=== PATIENT | male | born 1935 | race Hispanic/Latino ===

== ENCOUNTER 2016-07-16 09:07 | Outpatient (CLI) | payer MEDICARE | END 2016-07-16 09:08 | LOC: NAVSJIPCSP 09:07 | PROVIDERS: ATTEND Internal Medicine | DX: E78.5 Hyperlipidemia, unspecified (principal); I11.9 Hypertensive heart disease without heart failure; Z78.9 Other specified health status | CPT/HCPCS: 36415; 80061 ==

== ENCOUNTER 2016-10-18 09:04 | Outpatient (CLI) | payer MEDICARE ==
[2016-10-18 13:13] LABS: Cardiac Risk 5.7 (Less than 4.5)
== END 2016-10-18 09:05 | disposition home or self-care (01) ==
LOC: NAVSJIPCSP 09:04
PROVIDERS: ATTEND Internal Medicine
DX: E78.5 Hyperlipidemia, unspecified (principal); Z79.899 Other long term (current) drug therapy
CPT/HCPCS: 36415; 80061

== ENCOUNTER 2016-10-20 21:26 | Emergency (ER) | payer MEDICARE | END 2016-10-20 22:00 | disposition home or self-care (01) | LOC: NAV ERS 21:26 | DX: S50.861A Insect bite (nonvenomous) of right forearm, initial encounter (principal); I10 Essential (primary) hypertension; I25.2 Old myocardial infarction; E78.5 Hyperlipidemia, unspecified; W57.XXXA Bitten or stung by nonvenomous insect and other nonvenomous arthropods, initial encounter | CPT/HCPCS: 99283 ==

== ENCOUNTER 2016-11-13 18:15 | Emergency (ER) | payer MEDICARE ==
[2016-11-13] MEDS ORDERED: Acetaminophen/Codeine 30-300mg Tablet ONE ×2 (18:43→20:43)
[2016-11-13 19:10] LABS: Bilirubin Negative (Negative); Blood, Urine Moderate (Negative); Clarity Clear (Clear); Glucose, Urine (Dipstick) 500 mg/dL (Negative); Leukocyte Negative (Negative); Nitrite Negative (Negative); Protein, Urine (Dipstick) 100 mg/dL (Neg-Trace)
--- NOTE | 2016-11-13 19:10 | RAD ---
THORACIC SPINE THREE VIEWS: 11/13/16 HISTORY: Back pain. No history of trauma. Vertebral bodies maintain normal height. Degenerative osteophytes are seen. No compression fractures . Pedicles are intact. IMPRESSION: Moderate arthritic changes of the spine. POS: [facility]
[2016-11-13 19:11] LABS: RBC/HPF 0-3 HPF (0-3); Squamous Epithelial 0-3 HPF (0-3); WBC/HPF 0-3 HPF (0-3)
--- NOTE | 2016-11-13 19:11 | RAD ---
PORTABLE CHEST: 11/13/16 COMPARISON: 06/28/15 study. HISTORY: Upper back pain. Heart size is within normal limits. There are postop sternotomy changes. The lungs are clear of infi ltrative process. IMPRESSION: No active intrathoracic disease. POS: [facility]
[2016-11-13 19:12] LABS: Bacteria/HPF Rare-Few HPF (None Seen)
[2016-11-13] MEDS ORDERED: Insulin Regular 300 UNITS/3 ML VIAL ONE (19:30)
[2016-11-13] MEDS ORDERED: Cyclobenzaprine 10 MG TAB ONE (20:43)
== END 2016-11-13 20:55 | disposition home or self-care (01) ==
LOC: NAV ERS 18:15
DX: S29.012A Strain of muscle and tendon of back wall of thorax, initial encounter (principal); R73.9 Hyperglycemia, unspecified; I25.10 Atherosclerotic heart disease of native coronary artery without angina pectoris; I25.2 Old myocardial infarction; E78.5 Hyperlipidemia, unspecified; I10 Essential (primary) hypertension; Z79.82 Long term (current) use of aspirin; Z79.899 Other long term (current) drug therapy; X58.XXXA Exposure to other specified factors, initial encounter
CPT/HCPCS: 36415; 36416; 71010; 72072; 81003; 81015; 83036; 96372; J1815

== ENCOUNTER 2016-11-14 11:40 | Outpatient (CLI) | payer MEDICARE ==
[2016-11-14 13:01] LABS: Hemoglobin A1c 9.9 % (4.0-6.0)
== END 2016-11-14 11:41 ==
LOC: NAVSJIPCSP 11:40
PROVIDERS: ATTEND Internal Medicine
DX: M54.6 Pain in thoracic spine (principal); R73.9 Hyperglycemia, unspecified
CPT/HCPCS: 36415; 83036

== ENCOUNTER 2016-12-19 09:42 | Outpatient (CLI) | payer MEDICARE ==
[2016-12-19 13:13] LABS: Blood, Urine Trace (Negative); Clarity Clear (Clear); Glucose, Urine (Dipstick) 500 mg/dL (Negative); Leukocyte Negative (Negative); Nitrite Negative (Negative); Protein, Urine (Dipstick) 100 mg/dL (Neg-Trace); Urobilinogen 0.2 mg/dL (0.2-1.0); pH, Urine 5.5 (5.0-9.0)
[2016-12-19 13:53] LABS: Bilirubin Negative (Negative); Icto Negative (Negative)
[2016-12-19 13:56] LABS: Bacteria/HPF None Seen HPF (None Seen); RBC/HPF 0-3 HPF (0-3); Squamous Epithelial 0-3 HPF (0-3); WBC/HPF 0-3 HPF (0-3)
== END 2016-12-19 09:43 | disposition home or self-care (01) ==
LOC: NAVSJIPCSP 09:42
PROVIDERS: ATTEND Internal Medicine
DX: R35.0 Frequency of micturition (principal)
CPT/HCPCS: 81003; 81015; 87086

== ENCOUNTER 2017-02-14 10:27 | Outpatient (CLI) | payer MEDICARE ==
[2017-02-14 12:38] LABS: Hemoglobin A1c 15.1 % (4.0-6.0)
[2017-02-14 12:57] LABS: Cardiac Risk 7.9 (Less than 4.5); Cholesterol 277 mg/dl (< 200 Desired); HDL Cholesterol 35 mg/dL (>60 Neg Risk); Triglycerides 640 mg/dL (Less than 150)
== END 2017-02-14 10:28 | disposition home or self-care (01) ==
LOC: NAVSJIPCSP 10:27
PROVIDERS: ATTEND Internal Medicine
DX: E78.5 Hyperlipidemia, unspecified (principal); E11.59 Type 2 diabetes mellitus with other circulatory complications; Z79.899 Other long term (current) drug therapy
CPT/HCPCS: 36415; 80061; 83036

== ENCOUNTER 2017-02-28 11:45 | Outpatient (CLI) | payer MEDICARE ==
[2017-02-28 12:46] LABS: #Basophils 0.1 thou/uL (0.0-0.2); #Eosinphils 0.2 thou/uL (0.0-0.7); #Lymphocytes 2.1 thou/uL (1.20-3.40); #Monocytes 0.6 thou/uL (0.11-0.59); #Neutrophils 4.2 thou/uL (1.40-6.50); %Basophils 1.7 % (0.0-1.0); %Eosinophils 2.6 % (0.0-10.0); %Lymphocytes 29.1 % (21.0-51.0); %Monocytes 7.9 % (0.0-10.0); %Neutrophils 58.7 % (42.0-75.0); Hemoglobin 13.5 g/dL (14.0-18.0); Mean Corpuscular HGB CONC 33.6 g/dL (32.0-36.0); Mean Corpuscular Hemoglobin 31.3 pg (27.0-31.0); Mean Corpuscular Volume 93.1 fl (80.0-94.0); Mean Platelet Volume 7.7 fL (7.4-10.4); Platelet Count 261 thou/uL (130-400); RBC Distribution Width 12.3 % (11.5-14.5); Red Blood Cell (RBC) Count 4.32 mill/uL (4.70-6.10); White Blood Cell (WBC) Count 7.1 thou/uL (4.8-10.8)
[2017-02-28 13:03] LABS: ALT (SGPT) 21 U/L (8-55); AST (SGOT) 25 U/L (5-34); Albumin 3.9 g/dL (3.4-4.8); Alkaline Phosphatase 75 U/L (40-150); Anion Gap 14 mmol/L (10-20); BUN (Urea Nitrogen) 14 mg/dL (8.4-25.7); Bilirubin, Total 0.7 mg/dL (0.2-1.2); Calc. Creatinine Clearance 0 mL/min (70-130); Calcium 9.7 mg/dL (7.8-10.44); Carbon Dioxide 23 mmol/L (23-31); Chloride 105 mmol/L (98-107); Estimated GFR-MDRD 60; Globulin 2.9 g/dL (2.4-3.5); Glucose 296 mg/dL (83-110); Potassium 4.2 mmol/L (3.5-5.1); Protein, Total 6.8 g/dL (5.8-8.1); Sodium 138 mmol/L (136-145)
== END 2017-02-28 11:46 | disposition home or self-care (01) ==
LOC: NAVSJIPCSP 11:45
PROVIDERS: ATTEND Internal Medicine
DX: Z79.899 Other long term (current) drug therapy (principal)
CPT/HCPCS: 36415; 80053; 85025

== ENCOUNTER 2017-07-14 09:22 | Emergency (ER) | payer MEDICARE ==
[2017-07-14 10:55] LABS: #Basophils 0.1 thou/uL (0.0-0.2); #Eosinphils 0.2 thou/uL (0.0-0.7); #Lymphocytes 1.8 thou/uL (1.20-3.40); #Monocytes 0.6 thou/uL (0.11-0.59); #Neutrophils 5.3 thou/uL (1.40-6.50); %Basophils 1.2 % (0.0-1.0); %Eosinophils 2.8 % (0.0-10.0); %Lymphocytes 22.5 % (21.0-51.0); %Monocytes 7.2 % (0.0-10.0); %Neutrophils 66.2 % (42.0-75.0); Hemoglobin 14.8 g/dL (14.0-18.0); Mean Corpuscular HGB CONC 33.3 g/dL (32.0-36.0); Mean Corpuscular Hemoglobin 29.6 pg (27.0-31.0); Mean Corpuscular Volume 89.1 fl (80.0-94.0); Mean Platelet Volume 8.7 fL (7.4-10.4); Platelet Count 245 thou/uL (130-400); RBC Distribution Width 12.2 % (11.5-14.5); White Blood Cell (WBC) Count 8.1 thou/uL (4.8-10.8)
[2017-07-14 11:10] LABS: ALT (SGPT) 35 U/L (8-55); AST (SGOT) 29 U/L (5-34); Albumin 4.2 g/dL (3.4-4.8); Alkaline Phosphatase 70 U/L (40-150); Anion Gap 15 mmol/L (10-20); BUN (Urea Nitrogen) 17 mg/dL (8.4-25.7); Bilirubin, Total 0.7 mg/dL (0.2-1.2); Calc. Creatinine Clearance 0 mL/min (70-130); Calcium 9.7 mg/dL (7.8-10.44); Carbon Dioxide 23 mmol/L (23-31); Chloride 105 mmol/L (98-107); Estimated GFR-MDRD 65; Globulin 3.1 g/dL (2.4-3.5); Glucose 123 mg/dL (83-110); Magnesium 1.9 mg/dL (1.6-2.6); Protein, Total 7.3 g/dL (5.8-8.1); Sodium 139 mmol/L (136-145)
[2017-07-14 11:12] LABS: CKMB 0.7 ng/mL (0-6.6); Troponin I 0.015 ng/mL (< 0.028)
[2017-07-14] MEDS ORDERED: Sodium Chloride 0.9% 500 ML ONE (11:37)
[2017-07-14 11:42] LABS: Bilirubin Negative (Negative); Blood, Urine Negative (Negative); Clarity Clear (Clear); Glucose, Urine (Dipstick) Negative (Negative); Leukocyte Negative (Negative); Nitrite Negative (Negative); Protein, Urine (Dipstick) > or equal to 300 mg/dL (Neg-Trace); Specific Gravity, Urine 1.025 (1.005-1.030)
[2017-07-14 11:51] LABS: Squamous Epithelial 0-3 HPF (0-3); WBC/HPF 0-3 HPF (0-3)
== END 2017-07-14 12:10 | disposition home or self-care (01) ==
LOC: NAV ERS 09:22
DX: I95.1 Orthostatic hypotension (principal); R00.1 Bradycardia, unspecified; I10 Essential (primary) hypertension; R80.9 Proteinuria, unspecified; E11.9 Type 2 diabetes mellitus without complications; I25.2 Old myocardial infarction; I25.10 Atherosclerotic heart disease of native coronary artery without angina pectoris; E78.5 Hyperlipidemia, unspecified; Z79.84 Long term (current) use of oral hypoglycemic drugs; Z79.899 Other long term (current) drug therapy
CPT/HCPCS: 80053; 81003; 81015; 82553; 83735; 84443; 84484; 85025; 87804; J7050

== ENCOUNTER 2019-01-28 14:51 | Emergency (ER) | payer MEDICARE | END 2019-01-28 15:30 | disposition home or self-care (01) | LOC: NAV ERS 14:51 | DX: R09.82 Postnasal drip (principal); E11.9 Type 2 diabetes mellitus without complications; I25.10 Atherosclerotic heart disease of native coronary artery without angina pectoris; I25.2 Old myocardial infarction; E78.5 Hyperlipidemia, unspecified; I10 Essential (primary) hypertension; Z79.899 Other long term (current) drug therapy; Z79.84 Long term (current) use of oral hypoglycemic drugs | CPT/HCPCS: 99283 ==

== ENCOUNTER 2019-04-18 13:27 | Emergency (ER) | payer MEDICARE ==
--- NOTE | 2019-04-18 14:31 | CT ---
Brain CT without IV contrast: HISTORY: Injury following a fall COMPARISON: 06/28/2015 FINDINGS: Atrophy and chronic white matter ischemic changes. 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 No focal mass or midline shift. No intra or extra-axial hemorrhage. Sinus changes. 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 No mass or bleed.
--- NOTE | 2019-04-18 14:40 | CT ---
Cervical spine CT scan without IV contrast: HISTORY: Injury from a fall hitting head FINDINGS: Multilevel disc osteophytosis and facet arthrosis. No evidence for prevertebral soft tissue swelling. No acute fracture or dislocation. Minimal sinus mucosal disease. IMPRESSION: Multilevel cervical spondylosis. No evidence for acute fracture or facet dislocation.
--- NOTE | 2019-04-18 16:02 | RAD ---
Exam: Left shoulder 3 views: HISTORY: Injury pain FINDINGS: Marked A/C joint arthrosis changes as well as some glenohumeral joint arthrosis. No evidence for acut e fracture or dislocation. 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
== END 2019-04-18 15:50 | disposition home or self-care (01) ==
LOC: NAV ERS 13:27
DX: S00.83XA Contusion of other part of head, initial encounter (principal); S80.211A Abrasion, right knee, initial encounter; M25.512 Pain in left shoulder; E11.9 Type 2 diabetes mellitus without complications; I25.10 Atherosclerotic heart disease of native coronary artery without angina pectoris; I25.2 Old myocardial infarction; E78.5 Hyperlipidemia, unspecified; I10 Essential (primary) hypertension; Z86.73 Personal history of transient ischemic attack (TIA), and cerebral infarction without residual deficits; Z79.899 Other long term (current) drug therapy; Z79.84 Long term (current) use of oral hypoglycemic drugs; W01.0XXA Fall on same level from slipping, tripping and stumbling without subsequent striking against object, initial encounter
CPT/HCPCS: 70450; 72125; 94760